=== PATIENT | female | born 1995 | race American Indian/Alaskan Native ===

== ENCOUNTER 2019-02-05 01:16 | Outpatient (CLI) | payer OTHER ==
[2019-02-05] MEDS ORDERED: PRENATAL TABLE1 EAC1 PO (01:35)
== END 2019-02-05 15:03 | disposition home or self-care (01) ==
LOC: OBS/DEL 01:16
DX: O26.893 Other specified pregnancy related conditions, third trimester (principal); R10.2 Pelvic and perineal pain; Z34.03 Encounter for supervision of normal first pregnancy, third trimester

== ENCOUNTER 2019-03-03 05:44 | Inpatient (IN) | payer OTHER ==
[~2019-03-03] VITALS: Ht 167.6 cm; Wt 74.8 kg
[~2019-03-03 05:44] MED LIST: PRENATAL TABLE1 EAC1 PO
== END 2019-03-05 11:09 | disposition home or self-care (01) | DRG 807 ==
LOC: OBS/DEL 05:44 → LDR 07:28 → OB/GYN 07:28
PROVIDERS: ADMIT Obstetrics & Gynecology
PROC: 10E0XZZ Delivery of Products of Conception, External Approach (ICD-10-PCS; principal; 2019-03-03)
PROC: 10907ZC Drainage of Amniotic Fluid, Therapeutic from Products of Conception, Via Natural or Artificial Opening (ICD-10-PCS; 2019-03-03)
PROC: 4A1HXCZ Monitoring of Products of Conception, Cardiac Rate, External Approach (ICD-10-PCS; 2019-03-03)
DX: O80 Encounter for full-term uncomplicated delivery (principal); Z37.0 Single live birth; Z3A.38 38 weeks gestation of pregnancy